=== PATIENT | female | born 1960 | race Caucasian/White ===

== ENCOUNTER 2016-11-12 11:42 | Emergency (ER) | payer OTHER ==
[2016-11-12 11:57] VITALS: BP 166/89
[2016-11-12] MEDS ORDERED: Aspirin Low Dose CHEW TAB* 81 MG PO ONE (12:25)
--- NOTE | 2016-11-12 14:33 | UC ---
Michael Anne Michael, scribed for Farrah Mercado DO on 11/12/16 at 1225 . Cardiac HPI - HPI Summary HPI Summary: 56 y/o female comes to [facility] presenting with intermittent episodes of chest pain that started 2 weeks ago. The pt describes the chest pain as pressure and tightness. Today the chest pain was rated an 8 out of 10 on a pain severity scale at it's worse, but currently at [facility] the chest pain is rated as a 3 out of 10. The chest pain occurs a "couple time" per day and last up to one hour. The pt also c/o nausea, loss of appetite, and sore throat. She denies SOB, cough, neck pain, jaw pain, bilateral UE pain, dizziness, and diaphoresis. The pt has no hx of panics attacks, but she does notice an increased in anxiety for the past 2 weeks. She believes it could be from starting her medications again. The pt originally stopped all of them 6 months ago for financial reasons including insulin. 2 weeks ago she retarted all of them except insulin. The PMHx is significant for HTN and DM. The FHx is significant for DM and CVA. - History of Current Complaint Chief Complaint: UCCardiac Stated Complaint: PANIC ATTACKS Time Seen by Provider: 11/12/16 11:52 Hx Obtained From: Patient, Medical Records Onset/Duration: Sudden Onset, Lasting Weeks Timing: Intermittent Episodes Lasting: Initial Severity: Moderate Current Severity: None Chest Pain Location: Mid Sternal, Upper Sternal, Left Anterior Character: Tightness, Pressure/Squeezing Aggravating: Nothing Alleviating: Nothing Associated Signs & Symptoms: Positive: Negative - SOB, cough, neck pain, jaw pain, bilateral UE pain, dizziness, and diaphoresis, Chest Pain - including sore throat., Anxiety, Recent Stress, Nausea/Vomiting - only nausea and loss of appetite.. Negative: Headaches, Numbness, Tingling, Weakness, Dizziness, SOB, Swelling, Syncope, Fever, Diaphoresis, Cough, Abdominal Pain, Calf Pain/Swelling - Risk Factors Cardiac Risk Factors: Hypertension, Diabetes, Elevated Lipids, Family History AMI/ACS Risk Factors: Sedentary Lifestyle, Diabetes, Obesity, Hypertension, Dyslipidemia - Allergy/Home Medications Allergies/Adverse Reactions: Allergies Allergy/AdvReac Type Severity Reaction Status Date / Time No Known Allergies Allergy Verified 11/12/16 13:37 Home Medications: Home Medications FLUoxetine CAP* [PROzac CAP*] 20 mg PO DAILY 11/12/16 [History Confirmed ] Insulin ISOPH/REG 70/30 (*) [HumuLIN 70/30 (*)] 20 units BID AC 11/12/16 [ History Confirmed 11/12/16] Lisinopril & Hydrochlorothiazi [Zestoretic 20-25 mg-] 1 tab PO DAILY 11/12/16 [ History Confirmed 11/12/16] Metformin HCl [Glucophage] 1,000 mg PO BID 11/12/16 [History Confirmed 11/12/16] Oxybutynin TAB* [Ditropan TAB*] 5 mg PO DAILY 11/12/16 [History Confirmed ] Simvastatin [Zocor 40 MG (NF)] 40 mg PO QPM 11/12/16 [History Confirmed 11/12/16 ] PMH/Surg Hx/FS Hx/Imm Hx Endocrine History Of: Reports: Diabetes Cardiovascular History Of: Reports: Cardiac Disorders - murmur, Hypertension - Surgical History Surgical History: Yes Surgery Procedure, Year, and Place: hernia repair, cholecystectomy, hysterectomy - Family History Known Family History: Positive: Diabetes, Other - CVA Negative: Cardiac Disease, Hypertension - Social History Occupation: Employed Full-time Lives: With Family Alcohol Use: None Substance Use Type: None Smoking Status (MU): Never Smoked Tobacco - Immunization History Most Recent Influenza Vaccination: fall 2015 Review of Systems Constitutional: Negative Skin: Negative Eyes: Negative ENT: Sore Throat Respiratory: Negative Cardiovascular: Chest Pain Gastrointestinal: Other - nausea. loss of appetite. Genitourinary: Negative Motor: Negative Neurovascular: Negative Musculoskeletal: Negative Neurological: Negative Psychological: Negative All Other Systems Reviewed And Are Negative: Yes Physical Exam Triage Information Reviewed: Yes Appearance: Well-Appearing, No Pain Distress, Obese Vital Signs: Initial Vital Signs Temp 100.1 F 11/12/16 11:51 Pulse 79 11/12/16 11:51 Resp 16 11/12/16 11:51 BP 166/89 11/12/16 11:51 Pulse Ox 99 11/12/16 11:51 Vital Signs Reviewed: Yes Eyes: Positive: Conjunctiva Clear. Negative: Discharge ENT: Positive: Hearing grossly normal. Negative: Muffled/hoarse voice Neck: Positive: Supple, Nontender Respiratory: Positive: Lungs clear, Normal breath sounds, No respiratory distress, No accessory muscle use Cardiovascular: Positive: RRR, No Murmur Abdomen Description: Positive: Nontender, Soft. Negative: Distended, Guarding Bowel Sounds: Positive: Present Musculoskeletal Exam: Normal Neurological: Positive: Alert, Muscle Tone Normal Psychological Exam: Normal Psychological: Positive: Age Appropriate Behavior Skin Exam: Normal - warm. dry. nml color. Diagnostics - EKG Cardiac Rhythm: Sinus: Normal - 84 bpm Ectopy: None ST Segment: Normal - Assessment/Plan Course Of Treatment: Pt will be transferred to [facility] ED. Consulted Uday Arreola at 1220. - Differential Diagnoses - Chest Pain Differential Diagnosis/HQI/PQRI: Acute DC, ACS, Angina, Chest Wall, GI Disease, Pulmonary Embolism, Other: - anxiety - Clinical Impression Provider Diagnoses: cp r/o acs Discharge - Discharge Plan Condition: Stable Disposition: TRANS HIGHER LVL OF CARE FAC Referrals: Lex Ayala MD [Primary Care Provider] - The documentation as recorded by the Michael ramirez Michael accurately reflects the service I personally performed and the decisions made by , Farrah Mercado DO.
== END 2016-11-12 12:50 | disposition short-term general hospital (02) ==
LOC: UCEAST 11:42
DX: R07.89 Other chest pain (principal); F41.0 Panic disorder [episodic paroxysmal anxiety]; E11.9 Type 2 diabetes mellitus without complications; Z79.4 Long term (current) use of insulin; Z79.84 Long term (current) use of oral hypoglycemic drugs; I10 Essential (primary) hypertension; Z90.49 Acquired absence of other specified parts of digestive tract
CPT/HCPCS: 93005; 99203; A9270-GY; G0463

== ENCOUNTER 2016-11-12 13:03 | Observation (INO) | payer OTHER ==
[2016-11-12] MEDS ORDERED: Aspirin Low Dose CHEW TAB* 81 MG PO ONE (13:15)
--- NOTE | 2016-11-12 13:34 | RAD ---
INDICATION: Chest pain. COMPARISON: Comparison is made with a prior chest x-ray study from June 05, 2004. TECHNIQUE: A portable view of the chest was obtained. FINDINGS: Cardiac and mediastinal contours appear to be within normal limits. The lungs are clear. No pleural effusion is seen. IMPRESSION: NO EVIDENCE FOR ACUTE DISEASE.
[2016-11-12 13:38] LABS: Hematocrit 35 % (35-47); Mean Corpuscular HGB Conc 34 g/dl (31-36); Mean Corpuscular Hemoglobin 28 pg (27-31); Mean Corpuscular Volume 82 fL (80-97); Mean Platelet Volume 8 um3 (7.4-10.4); Red Cell Distribution Width 14 % (10.5-15); White Blood Count 7.2 10^3/ul (3.5-10.8)
[2016-11-12 13:50] LABS: Albumin 4.1 g/dL (3.2-5.2); BUN/Creatinine Ratio 22.1 (8-20); Calcium 9.9 mg/dL (8.6-10.3); EGFR African American 58.4 (>60); EGFR Non-African American 45.4 (>60); Globulin 3.1 g/dL (2-4); Magnesium 1.5 mg/dL (1.9-2.7); Potassium 3.8 mmol/L (3.5-5.0); Total Bilirubin 0.4 mg/dL (0.2-1.0); Total Protein 7.2 g/dL (6.4-8.9)
[2016-11-12 13:52] LABS: Troponin I 0.01 ng/mL (<0.04)
[2016-11-12] MEDS ORDERED: Al Hydrox/Mg Hydrox/Simet LIQ* 30 ML UDC PO PRN (13:58)
[2016-11-12] MEDS ORDERED: Acetaminophen TAB* 325 MG PO PRN (13:58)
[2016-11-12] MEDS ORDERED: Dextrose 50% Syringe 50 ML* 25 GM/50 ML SYRINGE IV PUSH PRN (14:00)
[2016-11-12 14:56] LABS: T4 7.88 g/dL (6.09-12.23)
[2016-11-12 14:57] LABS: TSH (Thyroid Stimulating Horm) 2.01 mcIU/mL (0.34-5.60)
[2016-11-12] MEDS: Heparin VIAL(*) 5000 UNITS/ML VIAL (FIVE THOUSAND) SUBCUT SCH ×2 (15:56→22:06)
--- NOTE | 2016-11-12 16:21 | ED ---
Doroteo Anne Billy, scribed for Karlo Hassan MD on 11/12/16 at 1320 . HPI Chest Pain - HPI Summary HPI Summary: Patient is a 56 year-old female coming to [facility] for evaluation of midsternal chest pain starting at 1050 this morning, lasting approximately 1 hour. She describes constant, non-radiating chest "soreness and tightness," pain severity 8/10. 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 Nothing made her symptoms better or worse at the time, although the symptoms spontaneously resolved. She denied any nausea, vomiting, shortness of breath, dizziness, or syncope. She is asymptomatic at this time. - History of Current Complaint Chief Complaint: EDChestPainROMI Time Seen by Provider: 11/12/16 13:11 Hx Obtained From: Patient Onset/Duration: Started Hours Ago, Resolved Time of Onset: 10:50 Timing: Constant Initial Severity: Moderate Current Severity: None Pain Intensity: 8 Pain Scale Used: 0-10 Numeric Chest Pain Location: Mid Sternal Chest Pain Radiates: No Character: Tightness, Other: - sore Aggravating Factor(s): Nothing Alleviating Factor(s): Nothing Associated Signs and Symptoms: Positive: Chest Pain. Negative: Dizziness, Shortness of Breath, Syncope, Nausea, Vomiting - Allergy/Home Medications Allergies/Adverse Reactions: Allergies Allergy/AdvReac Type Severity Reaction Status Date / Time No Known Allergies Allergy Verified 11/12/16 13:37 PMH/Surg Hx/FS Hx/Imm Hx Endocrine/Hematology History: Reports: Hx Diabetes Cardiovascular History: Reports: Hx Hypercholesterolemia, Hx Hypertension - Surgical History Surgery Procedure, Year, and Place: hernia repair, cholecystectomy, hysterectomy Infectious Disease History: No Infectious Disease History: Denies: Traveled Outside the [place] in Last 30 Days - Family History Known Family History: Positive: Diabetes, Other - CVA - Social History Alcohol Use: None Substance Use Type: Reports: None Smoking Status (MU): Never Smoked Tobacco Review of Systems Positive: Chest Pain Negative: Shortness Of Breath Negative: Vomiting, Nausea Negative: Syncope All Other Systems Reviewed And Are Negative: Yes Physical Exam - Summary Physical Exam Summary: VITAL SIGNS: Reviewed. GENERAL: Patient is a well developed and nourished female who is lying comfortable in the stretcher. Patient is not in any acute respiratory distress. HEAD AND FACE: No signs of trauma. No ecchymosis, hematomas or skull depressions. No sinus tenderness. EYES: PERRLA, EOMI x 2, No injected conjunctiva, no nystagmus. EARS: Hearing grossly intact. Ear canals and tympanic membranes are within normal limits. MOUTH: Oropharynx within normal limits. NECK: Supple, trachea is midline, no adenopathy, no JVD, no carotid bruit, no c- spine tenderness, neck with full ROM. CHEST: Symmetric, no tenderness at palpation LUNGS: Clear to auscultation bilaterally. No wheezing or crackles. CVS: Regular rate and rhythm, S1 and S2 present, no murmurs or gallops appreciated. ABDOMEN: Soft, non-tender. No signs of distention. No rebound no guarding, and no masses palpated. Bowel sounds are normal. EXTREMITIES: FROM in all major joints, no edema, no cyanosis or clubbing. NEURO: Alert and oriented x 3. No acute neurological deficits. Speech is normal and follows commands. SKIN: Dry and warm Triage Information Reviewed: Yes Vital Signs On Initial Exam: Initial Vitals Temp Pulse Resp BP Pulse Ox 99.5 F 81 16 164/77 98 11/12/16 13:07 11/12/16 13:07 11/12/16 13:07 11/12/16 13:07 11/12/16 13:07 Vital Signs Reviewed: Yes Diagnostics - Vital Signs Vital Signs Temp Pulse Resp BP Pulse Ox 11/12/16 13:07 99.5 F 81 16 164/77 98 - Laboratory Result Diagrams: 11/12/16 13:20 11/12/16 13:20 Lab Statement: Any lab studies that have been ordered have been reviewed, and results considered in the medical decision making process. - Radiology CXR Xray Interpretation: No Acute Changes Radiology Interpretation Completed By: Radiologist - EKG 1415 EKG Interpretation: NSR 76 bpm, no ST elevation Chest Pain Course/Dx - Course Assessment/Plan: Patient is a 56 year-old female coming to [facility] for evaluation of midsternal chest pain starting at 1050 this morning, lasting approximately 1 hour. She describes constant, non-radiating chest "soreness and tightness," pain severity 8/10. 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 Nothing made her symptoms better or worse at the time, although the symptoms spontaneously resolved. She denied any nausea, vomiting, shortness of breath, dizziness, or syncope. She is asymptomatic at this time. Bloodwork WNL except for an increased BUN and creatinine consistent with slight renal insufficiency. Troponin is 0.01. EKG shows NSR with no ST elevation. CXR shows no acute findings. The patient was given ASA, IV fluids. The patient is more comfortable. However, due to multiple co-morbidities, the patient will be admitted to hospitalist services to rule out acute coronary syndrome. Patient is A&Ox3, heomdynamically stable. I discussed the case with Dr. Fraire who accepted the patient for admission. - Chest Pain Differential Diagnosis/HQI/PQRI: Acute NV, ACS, Angina, Aortic Aneurysm, CHF, Chest Wall, GI Disease, Lower Respiratory Infection - Diagnoses Provider Diagnoses: CP - Provider Notifications Discussed Care Of Patient With: Dr. Fraire (hospitalist) @ 0715: accepted admission. Discharge - Discharge Plan Condition: Stable Disposition: ADMITTED TO [facility] The documentation as recorded by the Doroteo ramirez Billy accurately reflects the service I personally performed and the decisions made by me, Karlo Hassan MD.
[2016-11-12] MEDS: Insulin LISPRO* 1 UNITS UNIT SUBCUT SCH (16:58)
[2016-11-12] MEDS ORDERED: Atorvastatin* 20 MG TAB PO SCH (18:00)
[2016-11-12] MEDS ORDERED: Temazepam CAP* 15 MG PO PRN (21:00)
--- NOTE | 2016-11-13 00:58 | HP ---
HISTORY AND PHYSICAL: DATE OF ADMISSION: 11/12/16 CHIEF COMPLAINT: Chest pain. PRIMARY CARE PROVIDER: Dr. Ayala. HISTORY OF PRESENT ILLNESS: Ms. Restrepo is a 56-year-old female with a history of diabetes, hypertension, dyslipidemia, who presents complaining of nonspecific chest pressure complaints. The patient stated for approximately 2 weeks, she would be having almost daily episodes of left upper chest pressure. She stated that it was not pain per se, but it felt like a "gas bubble." Today, it lasted approximately 1 hour and occurred when she was singing at a [employer] choir. She does not associate the pain with exercise. Usually, she would be standing or sitting when the pain would happen. It would resolve spontaneously without an associated dyspnea. She did complain of nausea with one episode of pain 2 days ago. She denies problems with exercise tolerance. Otherwise, she had been in her usual state of health. She is going to be placed on overnight observation with a diagnosis of chest pain PAST MEDICAL HISTORY: 1. Laparoscopic cholecystectomy. 2. Hernia repair. 3. Hysterectomy. 4. Diabetes. 5. Hypertension. 6. Dyslipidemia. MEDICATIONS: Include: 1. Simvastatin 40 mg daily. 2. Ditropan 5 mg daily. 3. Glucophage 1000 mg b.i.d. 4. Lisinopril with hydrochlorothiazide 20/25 one tablet daily. 5. Humulin 70/30 20 units b.i.d. The patient had not been using it for 6 months with problems with co-pays and being unable to afford it. 6. Prozac 20 mg daily. ALLERGIES: No known drug allergies. FAMILY HISTORY: Positive for father with a history of stroke, but at the age of 72. Mother with history of diabetes. SOCIAL HISTORY: Denies tobacco, alcohol, or drug use. 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 Her brother, Lacho, will be her surrogate if needed. REVIEW OF SYSTEMS: Please see history of present illness. The patient stated that she has had a stressful situation at home due to low income. She had problems affording her rent and her medications. All the remaining 14 systems were reviewed with the patient and were otherwise negative. PHYSICAL EXAMINATION GENERAL: The patient is a very pleasant 56-year-old female, who is in no acute distress. Awake, alert, and oriented x3. VITAL SIGNS: Blood pressure of 155/71, heart rate of 84 and regular, respiratory rate 21, oxygen saturation 98% on room air, and temperature 99.5. HEENT: Head: Atraumatic, normocephalic. Eyes: Pupils equal, reactive to light and accommodation. Oropharynx clear. Mucosa moist. NECK: Supple. No JVD, no bruit bilaterally. RESPIRATORY: Clear to auscultation bilaterally. CARDIOVASCULAR: Regular rate and rhythm. No murmur. ABDOMEN: Soft, nontender. Bowel sounds present in all 4 quadrants. EXTREMITIES: There is no edema. Pulses are +2 bilaterally. No clubbing or cyanosis. NEUROLOGIC: Speech clear. Cranial nerves II through XII grossly intact. Motor strength is 5/5 bilaterally. DIAGNOSTIC STUDIES/LAB DATA: Showed a white blood cell count of 7.2, hemoglobin of 12.0, hematocrit of 35, and platelets of 198. Sodium 133, potassium 3.8, chloride 99, carbon dioxide 25, BUN 27, creatinine 1.22. Glucose level of 183. Portable chest x-ray, impression: "No evidence for acute disease." EKG was reviewed by myself. The patient has normal sinus rhythm. No significant ST changes with a heart rate of 76 beats per minute. ASSESSMENT AND PLAN: 1. A 56-year-old lady with a history of diabetes, hypertension, who has had problems with affording her medications and most likely has had uncontrolled diabetes that presents with nonspecific chest pain complaints as described above. The patient is going to be placed on telemetry monitored bed and observation. Second troponin is going to be obtained. If that is negative, the patient is going to undergo a treadmill Myoview stress test in the morning. 2. In regards to the patient's dyslipidemia, her statin is going to be continued. We will also obtain fasting lipid profile in the morning. 3. In regards to the patient's diabetes, the patient is going to be placed on insulin sliding scale. Her Glucophage is going to be held while in the hospital. We will ask also social worker delinquency prevention to see the patient in consultation in regards to problems with covering the cost of the patient's co-pays. She apparently had not been able to afford her insulin due to high co-pay. 4. For DVT prophylaxis, the patient is going to be placed on heparin subcutaneously. 5. Code status is full. TIME SPENT: Approximately 62 minutes was spent on admission of this patient, more than half that time was spent [id number] with the patient during the interview and physical exam. CC: Dr. Ayala* [id number]/[facility] #: [id number] CASA
[2016-11-13] MEDS: Heparin VIAL(*) 5000 UNITS/ML VIAL (FIVE THOUSAND) SUBCUT SCH ×2 (05:37→14:39)
[2016-11-13 06:17] LABS: HDL Cholesterol 27.9 mg/dL
[2016-11-13 08:59] LABS: Troponin I 0.01 ng/mL (<0.04)
[2016-11-13] MEDS ORDERED: FLUoxetine CAP* 20 MG PO SCH (09:00)
[2016-11-13] MEDS ORDERED: Oxybutynin TAB* 5 MG PO SCH (09:00)
[2016-11-13] MEDS ORDERED: Aspirin Low Dose CHEW TAB* 81 MG PO SCH (09:00)
[2016-11-13] MEDS ORDERED: Lisinopril TAB* 10 MG PO SCH (09:00)
[2016-11-13] MEDS ORDERED: Hydrochlorothiazide TAB* 25 MG PO SCH (09:00)
[2016-11-13] MEDS: Insulin LISPRO* 1 UNITS UNIT SUBCUT SCH ×2 (09:14→14:44)
[2016-11-13 12:35] VITALS: BP 112/66
--- NOTE | 2016-11-13 13:11 | RAD ---
INDICATION: Chest pain COMPARISON: None TECHNIQUE: A single day SPECT protocol was utilized. Rest images were acquired following the intravenous injection of 10.2 millicuries of technetium 99m tetrofosmin. Pharmacologic stress images were acquired following the intravenous administration of 26.0 millicuries of technetium 99m tetrofosmin. FINDINGS: There are no defects of the stress-induced or fixed nature. The cardiac chamber size is normal. There are no wall motion abnormalities. The ejection fraction is calculated at 65% during stress. IMPRESSION: NO DEFECTS OR STRESS-INDUCED OR FIXED NATURE. ASSESSMENT: LOW-RISK Based on imaging criteria from ACC/AHA 2002 Guideline Update for the Management of Patients With Chronic Stable Angina Table 23. Noninvasive Risk Stratification.
[2016-11-13] MEDS ORDERED: Regadenoson* 0.4 MG/5 ML SYRINGE ONE (14:01)
--- NOTE | 2016-11-13 14:20 | DCNOTE ---
Subjective Date of Service: 11/13/16 Interval History: No more chest pain since admission. No new c/o. Patient states she hasn't had any insulin at home for weeks due to the high copay. She doesn't check her glucometer at home. Objective Active Medications: Acetaminophen (Tylenol Tab*) 650 mg PO Q4H PRN PRN Reason: FEVER/PAIN Al Hydrox/Mg Hydrox/Simethicone (Maalox Plus*) 30 ml PO Q6H PRN PRN Reason: INDIGESTION Aspirin (Aspirin Low Dose Tab*) 81 mg PO DAILY [facility] Atorvastatin Calcium (Lipitor*) 20 mg PO QPM [facility] Last Admin: 11/12/16 16:59 Dose: 20 mg Dextrose (D50w Syringe 50 Ml*) 12.5 gm IV PUSH .FOR FS < 60 - SS PRN PRN Reason: FS < 60 Fluoxetine HCl (Prozac Cap*) 20 mg PO DAILY [facility] Glipizide (Glucotrol Tab*) 5 mg PO 0800,1700 [facility] Heparin Sodium (Porcine) (Heparin Vial(*)) 5,000 units SUBCUT Q8HR [facility] Last Admin: 11/13/16 05:37 Dose: 5,000 units Hydrochlorothiazide (Hydrodiuril Tab*) 25 mg PO DAILY [facility] Insulin Human Lispro (Humalog*) 0 units SUBCUT AC [facility] PRN Reason: Protocol Last Admin: 11/13/16 09:14 Dose: 2 units Lisinopril (Prinivil Tab*) 20 mg PO DAILY [facility] Oxybutynin Chloride (Ditropan Tab*) 5 mg PO DAILY [facility] Temazepam (Restoril Cap*) 15 mg PO BEDTIME PRN PRN Reason: INSOMNIA Vital Signs 11/12/16 11/12/16 11/12/16 14:33 14:57 15:00 Temperature Pulse Rate 78 86 83 Respiratory 19 18 21 Rate Blood Pressure 140/69 155/71 (mmHg) O2 Sat by Pulse 98 97 98 Oximetry 11/12/16 11/12/16 11/12/16 15:07 15:56 19:20 Temperature 98.1 F 98.8 F Pulse Rate 82 89 76 Respiratory 19 16 16 Rate Blood Pressure 159/64 130/59 (mmHg) O2 Sat by Pulse 97 99 94 Oximetry 11/12/16 11/13/16 11/13/16 23:43 04:08 07:34 Temperature 98.3 F 97.8 F 97.9 F Pulse Rate 75 67 64 Respiratory 16 16 16 Rate Blood Pressure 126/51 121/52 118/58 (mmHg) O2 Sat by Pulse 97 97 99 Oximetry 11/13/16 08:43 Temperature Pulse Rate 69 Respiratory 18 Rate Blood Pressure 112/66 (mmHg) O2 Sat by Pulse Oximetry Oxygen Devices in Use Now: None Appearance: Alert, partly up in bed. In good spirits. Looks comfortable. Eyes: No Scleral Icterus Ears/Nose/Mouth/Throat: Clear Oropharnyx, Mucous Membranes Moist Neck: NL Appearance and Movements; NL JVP, No Thyroid Enlargement, Masses Respiratory: Symmetrical Chest Expansion and Respiratory Effort, Clear to Auscultation, Clear to Percussion Cardiovascular: NL Sounds; No Murmurs; No JVD, RRR, No Edema, - Skin: No Rash or Ulcers, No Nodules or Sclerosis, - Neurological: Alert and Oriented x 3, NL Sensation Result Diagrams: 11/12/16 13:20 11/12/16 13:20 Assess/Plan/Problems-Billing Assessment: - Patient Problems (1) Chest pain Current Visit: Yes Status: Acute Code(s): R07.9 - CHEST PAIN, UNSPECIFIED SNOMED Code(s): 83312216 Comment: Atypical chest pain. Neg troponins, neg stress test. Pt advised to discuss this with Dr. Aayla. (2) Diabetes Current Visit: Yes Status: Acute Code(s): E11.9 - TYPE 2 DIABETES MELLITUS WITHOUT COMPLICATIONS SNOMED Code(s): 82151151 Comment: SW is trying to help patient obtain insulin. Stop metformin due to lactic acidosis. Start glipizide. Pt advised to see Dr. Ayala this week, also to check her FS glucose at least tsice a day.
[2016-11-13] MEDS ORDERED: glipiZIDE TAB* 5 MG PO SCH (17:00)
--- NOTE | 2016-11-14 03:50 | DS ---
DISCHARGE SUMMARY: DATE OF ADMISSION: DATE OF DISCHARGE: 11/13/16 HISTORY OF PRESENT ILLNESS: This 56-year-old woman presented with chest pain that occurred while she was singing in choir at a [employer] on Sunday. It lasted about an hour. There were no associated symptoms. There was no radiation. She had the same off and on about once a day for the past week or so. She was rather sedentary and it was not related to any exertion or any other activities. She did not seek medical attention until the day of admission. The patient was admitted to a telemetry floor. Her troponins levels were all normal. She had a nuclear medicine stress test, which showed no evidence of infarct or ischemia. She had no further symptoms in the hospital. I am not sure what the etiology of her chest pain is. She could have esophageal spasm, esophagitis, chest wall problem. She had no tenderness on physical examination. There was no heart murmur or pericardial rub. She had no symptoms in the hospital. I think this is suitable for outpatient management. The patient states she has not taken insulin for several weeks as she could not accord the high co-pay. In the hospital, it was noted her lactic acid was 3.1. The creatinine is 1.22. I do not have any prior values for this. I think the combination of impaired renal function and lactic acidosis would precludes continuing her metformin. I did start her on glipizide 5 mg b.i.d. She received insulin in the hospital. She will start her glipizide the afternoon of discharge. She stated she had taken it in the past and does not know why it was stopped. Most likely it was not effective as a single agent. Her blood sugar in the lab here was 183. The last fingerstick was 184 in the hospital. The patient stated she simply does not use her glucometer at home. I told her to use it at least twice a day. She is to see Dr. Ayala before the end of the week as well. FINAL DIAGNOSES: 1. Atypical chest pain. 2. Diabetes. DISCHARGE MEDICATIONS: 1. Glipizide 5 mg 8 a.m. and 5 p.m. 2. Fluoxetine 20 mg daily. 3. Simvastatin 40 mg daily. 4. Lisinopril/hydrochlorothiazide 20/25 one daily. 5. Oxybutynin 5 mg daily. 6. Insulin as prescribed, although the patient cannot afford it. mold worker is working with the patient to try to arrange for her to have insurance that would make it possible for her to use insulin at home. CC: Dr. Ayala* [id number]/[facility] #: [id number] MTDD
== END 2016-11-13 16:13 | disposition home or self-care (01) ==
LOC: ED 13:03 → MEDTELE 13:53
PROVIDERS: ADMIT Internal Medicine; ATTEND Internal Medicine
DX: R07.89 Other chest pain (principal); E11.9 Type 2 diabetes mellitus without complications; Z79.4 Long term (current) use of insulin; E78.5 Hyperlipidemia, unspecified; Z79.899 Other long term (current) drug therapy; Z91.14 Patient's other noncompliance with medication regimen
CPT/HCPCS: 36415; 71010; 78452; 80053; 80061; 82550; 82553; 83036; 83605; 83735; 83880; 84436; 84443; 84484; 85025; 93005; 93017; 96372; 99283; A9270-GY; A9502; G0378; J1644; J2785

== ENCOUNTER 2017-08-21 11:44 | Inpatient (IN) | payer BC ==
--- NOTE | 2017-08-15 10:55 | HP ---
HISTORY AND PHYSICAL: DATE OF SURGERY/ADMISSION: 08/21/17 SURGEON: Sendy France MD. * (DICTATED BY ESHA HUNT) PROCEDURE: Right total knee arthroplasty. CHIEF COMPLAINT: Right knee pain. HISTORY OF PRESENT ILLNESS: Ms. Restrepo is a 57-year-old female with end-stage osteoarthritis of the right knee. She has failed conservative management and elected to proceed with a right total knee arthroplasty, which is scheduled for 08/21/[address] France. PAST MEDICAL HISTORY: Hypertension and diabetes. PAST SURGICAL HISTORY: Cholecystectomy, hernia repair and hysterectomy. CURRENT MEDICATIONS: 1. Glipizide 5 mg daily. 2. Oxybutynin 5 mg. 3. Lisinopril/hydrochlorothiazide 20/25 mg daily. 4. Simvastatin 40 mg. 5. Humalog 75-25, 100 units. 6. Meloxicam 7.5 mg twice daily. 7. Daily multivitamin. ALLERGIES: LATEX. FAMILY HISTORY: Diabetes, heart disease, and stroke. SOCIAL HISTORY: She is a 57-year-old female. She lives alone. She does not smoke. She is a home health aide. She does not use drugs or alcohol. REVIEW OF SYSTEMS: A complete 14-point review of systems was reviewed with the patient, was positive for diabetes. She denies history of DVT, PE, hepatitis C , HIV or anesthesia problems. PHYSICAL EXAMINATION GENERAL: She is well developed, well nourished, in no acute distress. VITAL SIGNS: She stands 5 feet 5 inches tall, weighs 190 pounds. Blood pressure is 142/80, heart rate 80. HEENT: Normocephalic, atraumatic. NECK: Supple. No palpable lymph nodes. PULMONARY: Lungs are clear to auscultation bilaterally. CARDIAC: Regular rate and rhythm. Strong S1, S2. ABDOMEN: Soft, nontender, and nondistended. NEUROLOGIC: She is alert and oriented x3. Cranial nerves II through XII are intact. MUSCULOSKELETAL: Right lower extremity, the skin is intact. There are no open wounds or abrasions. There is a mild effusion of the right knee. There is 15 degrees valgus deformity with 10 to 120 degrees of flexion. 2+ dorsalis pedis pulses. She has intact sensation. Lower extremity muscle groups strengths are intact at 5/5. ASSESSMENT AND PLAN: Ms. Restrepo is a 57-year-old female with end-stage osteoarthritis of the right knee. She has failed conservative management and elected to proceed with a right total knee arthroplasty, which is scheduled for 08/21/[address] France discussed the risks and benefits of the surgery on today's visit and all of her questions were answered. Coumadin, Percocet and Colace were sent to her pharmacy for postoperative pain control and DVT prophylaxis. She will follow up with Dr. France back 2 weeks after the surgery. ESHA HUNT [id number]/[facility] #: [id number] MTDConnie
[~2017-08-21 11:44] MED LIST: Buffered Lidocaine 0.9% SYRIN* 5 ML/SYR SYRINGE INTRADERM ONE; Famotidine IV* 10 MG/ML 2 ML (20 mg) IV ONE; Metoclopramide TAB* 10 MG PO ONE
[2017-08-21] MEDS ORDERED: Buffered Lidocaine 0.9% SYRIN* 5 ML/SYR SYRINGE ONE (11:52)
[2017-08-21] MEDS ORDERED: Famotidine IV* 10 MG/ML 2 ML (20 mg) ONE (11:52)
[2017-08-21] MEDS ORDERED: ceFAZolin 2 GM PREMIX (*) 2 GM/50 ML BAG IVPB ONE (11:52)
[2017-08-21] MEDS ORDERED: Metoclopramide TAB* 10 MG ONE (11:52)
[2017-08-21] MEDS ORDERED: Dexamethasone IV* 4 MG/ML 1 ML (4 MG) ONE (12:27)
[2017-08-21] MEDS ORDERED: Propofol* 10 MG/ML 20 ML BTL IV PUSH ONE (12:27)
[2017-08-21] MEDS ORDERED: fentaNYL* 50 MCG/ML 2 ML VIAL (100 MCG VIAL) ONE ×3 (12:27→16:22)
[2017-08-21] MEDS ORDERED: Lidocaine 2% PF * 5 ML VIAL ONE (12:27)
[2017-08-21] MEDS ORDERED: Ketorolac INJ* 30 MG/ML 1 ML VIAL ONE (12:27)
[2017-08-21] MEDS ORDERED: Ondansetron INJ* 2 MG/ML VIAL ONE (12:27)
[2017-08-21] MEDS ORDERED: KETAMINE HCL* 50 MG/ML 10 ML VIAL ONE (12:27)
[2017-08-21] MEDS ORDERED: Midazolam* 1 MG/ML 10 ML VIAL (10 MG) ONE (12:28)
[2017-08-21] MEDS ORDERED: Bupivacaine 0.5% SDV PF* 30 ML VIAL ONE (13:37)
[2017-08-21] MEDS ORDERED: EPHEDrine (Pressors)* 50 MG/ML VIAL ONE (14:24)
[2017-08-21] MEDS ORDERED: fentaNYL* 50 MCG/ML 5 ML VIAL (250 MCG VIAL) ONE (14:36)
[2017-08-21] MEDS ORDERED: Ondansetron INJ* 2 MG/ML VIAL IV PRN ×2 (15:20→15:21)
[2017-08-21] MEDS ORDERED: fentaNYL* 50 MCG/ML 2 ML VIAL (100 MCG VIAL) IV PRN (15:20)
[2017-08-21] MEDS ORDERED: DiMENhydriNATE IV* 50 MG/ML VIAL IV PUSH PRN (15:20)
[2017-08-21] MEDS ORDERED: Acetaminophen TAB* 325 MG PO PRN (15:21)
[2017-08-21] MEDS ORDERED: diPHENhydraMINE IV* 50 MG/ML 1 ml VIAL (BENADRYL) IV PRN (15:21)
[2017-08-21] MEDS ORDERED: Bisacodyl SUPP* 10 MG SUPP PR PRN (15:21)
[2017-08-21] MEDS ORDERED: Ondansetron TAB* 4 MG PO PRN (15:21)
[2017-08-21] MEDS ORDERED: Morphine INJ* 2 MG/ML 1 ML SYRINGE (TWO MG - NEW SYRINGE VERSION) IV PRN (15:21)
[2017-08-21] MEDS ORDERED: Polyethylene Glycol 3350* 17 GM PACKET PO PRN (15:21)
[2017-08-21] MEDS ORDERED: HYDROmorphone INJ* 2 MG/ML CARPUJECT SYRINGE IV SLOW PU PRN (15:31)
[2017-08-21] MEDS ORDERED: Cyclobenzaprine TAB* 10 MG PO PRN (15:32)
[2017-08-21] MEDS ORDERED: HYDROmorphone INJ* 1 MG/ML CARPUJECT SYRINGE ONE ×2 (16:04→17:36)
[2017-08-21] MEDS ORDERED: Insulin ISOPH/REG 70/30 (*) 1 UNITS UNIT SUBCUT SCH (16:30)
[2017-08-21] MEDS ORDERED: Labetalol IV* 5 MG/ML 20 ML VIAL ONE (17:36)
[2017-08-21] MEDS: HYDROmorphone INJ* 1 MG/ML CARPUJECT SYRINGE IV PRN ×2 (17:39→18:20)
--- NOTE | 2017-08-21 18:55 | RAD ---
INDICATION: Status post total right knee replacement surgery. TECHNIQUE: 2 views of the right knee were obtained. FINDINGS: The patient is status post total right knee replacement surgery. The bones and prostheses are in normal alignment. There is a surgical drain anterior to the distal femur. IMPRESSION: STATUS POST TOTAL RIGHT KNEE REPLACEMENT SURGERY.
[2017-08-21] MEDS ORDERED: Warfarin TAB(*) 6 MG PO ONE (21:00)
[2017-08-21] MEDS: Docusate CAP* 100 MG PO SCH (21:42)
[2017-08-21] MEDS ORDERED: Dextrose 50% Syringe 50 ML* 25 GM/50 ML SYRINGE IV PUSH PRN (21:42)
[2017-08-21] MEDS: Oxybutynin TAB* 5 MG PO SCH (21:42)
[2017-08-21] MEDS: Atorvastatin* 20 MG TAB PO SCH (21:43)
[2017-08-21] MEDS: oxyCODONE/Acetamin 5/325 MG* TAB PO PRN (21:43)
[2017-08-21] MEDS ORDERED: ceFAZolin 1 GM in Dextrose (*) 1 GM/50 ML Duplex BAG IVPB SCH (22:30)
--- NOTE | 2017-08-21 23:54 | CONS ---
CC: Dr. Sendy France; Dr. Lex Ayala * CONSULTATION REPORT: DATE OF CONSULT: 08/21/17 PRIMARY CARE PROVIDER: Dr. Lex Ayala. PROVIDER REQUESTING CONSULT: Dr. Sendy France. ATTENDING PHYSICIAN: Dr. Eddie Barton (dictated by Rita Brock NP). REASON FOR CONSULT: Co-medical management in a patient with a history of hypertension, diabetes, depression, and hyperlipidemia. HISTORY OF PRESENT ILLNESS: Ms. Restrepo is a 57-year-old female with a past medical history significant for depression, diabetes mellitus, hyperlipidemia, and osteoarthritis, who presented to the hospital today for an elective right total knee arthroplasty with Dr. France. The patient states that leading up to her surgery, she has been in her usual state of health. She denies any fever, chills, shortness of breath, chest pain, nausea, vomiting, diarrhea, or urinary symptoms. The patient is currently pain free while in the recovery room postprocedure. Hospitalists were asked to evaluate the patient to assist with co -medical management during her hospitalization. PAST MEDICAL HISTORY: 1. Hypertension. 2. Diabetes mellitus. 3. Osteoarthritis. 4. Urge incontinence. 5. Depression. 6. Hyperlipidemia. PAST SURGICAL HISTORY: 1. Status post cholecystectomy. 2. Status post hernia repair. 3. Status post hysterectomy. HOME MEDICATIONS: Include: 1. Glipizide 5 mg oral daily. 2. Oxybutynin 5 mg oral daily. 3. Lisinopril/hydrochlorothiazide 20/25 one tablet oral daily. 4. Simvastatin 3 mg oral daily at bedtime. 5. Humalog KwikPen 75/25, 12 units subcutaneously twice daily. 6. Meloxicam 7.5 mg oral twice daily. 7. Multivitamin 1 tablet oral daily. ALLERGIES: LATEX. FAMILY HISTORY: The patient reports family history of diabetes mellitus, heart disease, and stroke. SOCIAL HISTORY: The patient does not smoke, drink alcohol, or use recreational drugs. She works as a home health aide. The patient's brother, Lacho Restrepo, will be her surrogate decision maker in the event she is unable to make decisions for herself. REVIEW OF SYSTEMS: I performed a 14-point review of systems. All the pertinent positives and negatives are mentioned in the history of present illness. The remaining review of systems is negative. PHYSICAL EXAM: Vital Signs: Temperature 97.3, heart rate 74, respiratory rate 11, O2 sat 98% on 3 L via nasal cannula, blood pressure 153/74. General Appearance: The patient is drowsy, but responds to voice, pleasant, appears to be in no acute distress. HEENT: Normocephalic, atraumatic. Pupils are equal and reactive to light. Extraocular movements are intact. Respiratory: There is no accessory muscle use and lungs are clear to auscultation bilaterally. Cardiac: Regular rate and rhythm. S1 and S2 present. There are no murmurs, rubs, or gallops heard. Abdomen: Soft, nontender, and nondistended. There were bowel sounds present x4. Extremities: There is no lower extremity edema. DP and PT pulses are 2+ and symmetric. Musculoskeletal: There is no clubbing or cyanosis noted. The patient exhibits good strength in all extremities. Neurological: The patient is alert and oriented x4. Cranial nerves II through XII are grossly intact. Psychological: The patient is calm and cooperative. Skin: There are no rashes or abnormalities seen. The patient has a clean, dry , and intact dressing to her right knee. LABORATORY DATA: Preoperative labs from 08/10/17, sodium 135, potassium 4.5, chloride 99, CO2 29, BUN 31, creatinine 1.06, glucose 194. White blood cell count 8.0, hemoglobin 11.7, hematocrit 34, and platelet count 224. Urinalysis negative. IMPRESSION: Ms. Restrepo is a 57-year-old female with past medical history significant for osteoarthritis, urge incontinence, hypertension, diabetes mellitus, depression, hyperlipidemia, who presents to the hospital today for an elective right total knee replacement with Dr. Sendy France. ASSESSMENT AND PLAN: 1. Status post right total knee arthroplasty. Management will be per Orthopedic Surgery. The patient will be placed on a pain medication regimen and a bowel regimen. She will have physical therapy and occupational therapy starting tomorrow. She will have urinary catheter in place until tomorrow morning. The patient will have her H and H trended. 2. Diabetes mellitus. The patient will have glucose checks a.c. and h.s. We will place her on a lispro sliding scale while in the hospital. We will hold her glipizide. 3. Hypertension. We will resume the patient's lisinopril/hydrochlorothiazide in the morning if her blood pressures allow. She has actually been slightly hypertensive while in the emergency room, I suspect this is secondary to holding her antihypertensives this morning. 4. Hyperlipidemia. The patient will be continued on her statin. 5. Urge incontinence. The patient will be continued on her home oxybutynin. 6. Obesity. BMI 31 7. Fluid, electrolytes, and nutrition. The patient will be on a consistent carbohydrate diet. 8. Code status. Full code. 9. DVT prophylaxis. The patient will be on Lovenox bridged to warfarin per Orthopedic Surgery. 10. Disposition. Inpatient with disposition per Orthopedic Surgery. TIME SPENT: Time for this consultation was approximately 45 minutes, greater than half of that was spent with the patient discussing medications, past medical history, the events leading up to her arrival today, and performing a physical examination. Reviewed by DALILA HINOJOSA 08/28/17 [id number]/[facility] #: [id number] CASA
[2017-08-22] MEDS: ceFAZolin 1 GM in Dextrose (*) 1 GM/50 ML BAG IVPB SCH ×3 (00:12→14:31)
[2017-08-22] MEDS: oxyCODONE/Acetamin 5/325 MG* TAB PO PRN ×5 (01:28→23:43)
[2017-08-22 05:45] LABS: Hematocrit 27 % (35-47); Hemoglobin 8.9 g/dl (12.0-16.0)
[2017-08-22 06:12] LABS: Calcium 8.2 mg/dL (8.6-10.3); EGFR African American 56.1 (>60); EGFR Non-African American 43.6 (>60); Potassium 4.7 mmol/L (3.5-5.0)
[2017-08-22] MEDS: Insulin LISPRO* 1 UNITS UNIT SUBCUT SCH ×5 (06:27→21:58)
[2017-08-22] MEDS: Oxybutynin TAB* 5 MG PO SCH ×2 (08:34→21:11)
[2017-08-22] MEDS: Hydrochlorothiazide TAB* 25 MG PO SCH (08:34)
[2017-08-22] MEDS: Lisinopril TAB* 10 MG PO SCH (08:34)
[2017-08-22] MEDS: Docusate CAP* 100 MG PO SCH ×2 (08:34→21:10)
--- NOTE | 2017-08-22 08:46 | PN ---
Progress Note - Progress Note Date of Service: 08/22/17 SOAP: Subjective: []Patient seen OOB in chair. She feels quite well without RLE pain. Denies CP, SOB, nausea, leg numbness. Glucose has been elevated into the 400's, hospitalist service has her on lispro sliding scale for control. Objective: [] Vital Signs Temp 97.7 F 08/22/17 07:34 Pulse 89 08/22/17 07:34 Resp 16 08/22/17 07:48 BP 129/67 08/22/17 07:34 Pulse Ox 99 08/22/17 08:00 Intake & Output 08/21/17 08/22/17 08/22/17 18:59 06:59 18:59 Intake Total 2400 325 1456 Output Total 550 325 Balance 1850 0 1456 Weight 190 lb 9.6 oz Intake: IV Fluids 2400 1096 LR 2350 980 NS 50ML, Cefazolin 2G 50 abx 116 Oral 325 360 Output: Urine 150 Cook 550 175 Other: # Bowel Movements 0 Laboratory Last Values Hgb 8.9 g/dl (12.0-16.0) L 08/22/17 05:32 Hct 27 % (35-47) L 08/22/17 05:32 INR (Anticoag Therapy) 1.03 (0.77-1.02) H 08/22/17 05:32 Sodium 131 mmol/L (133-145) L 08/22/17 05:32 Potassium 4.7 mmol/L (3.5-5.0) 08/22/17 05:32 Chloride 101 mmol/L (101-111) 08/22/17 05:32 Carbon Dioxide 22 mmol/L (22-32) 08/22/17 05:32 Anion Gap 8 mmol/L (2-11) 08/22/17 05:32 BUN 39 mg/dL (6-24) H 08/22/17 05:32 Creatinine 1.26 mg/dL (0.51-0.95) H 08/22/17 05:32 Est GFR ( Amer) 56.1 (>60) 08/22/17 05:32 Est GFR (Non-Af Amer) 43.6 (>60) 08/22/17 05:32 BUN/Creatinine Ratio 31.0 (8-20) H 08/22/17 05:32 Glucose 343 mg/dL (70-100) H 08/22/17 05:32 POC Glucose (mg/dL) 335 mg/dL (70-100) H 08/22/17 07:38 Calcium 8.2 mg/dL (8.6-10.3) L 08/22/17 05:32 General: OOB in chair. Well appearing, NAD Right Lower Extremity: Dressing CDI Bl LE: Calves supple and nontender without erythema, edema or palpable cords. Negative major's sign bilaterally. DF/PF intact. DP/PT 2+. Sensation intact distally. Assessment: []POD 1 s/p right total knee arthroplasty, Dr France 08/21/17 Plan: []WBAT PT/OT Lovenox, coumadin 6 mg today Appreciate hospitalist input, managing medical comorbidities.
[2017-08-22] MEDS ORDERED: glipiZIDE TAB* 5 MG PO SCH (09:00)
[2017-08-22] MEDS: Enoxaparin(*) 30 MG/0.3 ML SYR SUBCUT SCH (11:51)
--- NOTE | 2017-08-22 12:25 | OP ---
DATE OF OPERATION: 08/21/17 - ROOM #349 DATE OF : 58 SURGEON: Sendy France MD. SCHOOL AGE LEAD TEACHER: ESHA Castano. Mr. Melchor did help throughout the procedure with preparation of the leg, wound retraction, manipulation of the knee, and wound closure. ANESTHESIOLOGIST: Dr. Brunson. ANESTHESIA: General with adductor nerve block. PRE-OP DIAGNOSIS: Severe end-stage degenerative osteoarthritis of the right knee joint with valgus deformity. POST-OP DIAGNOSIS: Severe end-stage degenerative osteoarthritis of the right knee joint with valgus deformity. OPERATIVE PROCEDURE: Right total knee arthroplasty. TOURNIQUET TIME: 53 minutes. COMPLICATIONS: None. ESTIMATED BLOOD LOSS: 300 cc. SPECIMENS: Bone and cartilage from the right knee joint sent to Pathology. HARDWARE USED: [employer] cemented total knee hardware. Two packages of Simplex bone cement. For the femur, a size 4 narrow right posterior stabilized femoral component. For the tibia, size 4 tibial baseplate Eva II. For the insert, a 9 mm constrained articular insert size 3-4 and for the patella a 29- mm 3- peg all poly patella with 7.5 thickness. BRIEF HISTORY/INDICATIONS: Ms. Restrepo is a 57-year-old female with years of increasingly severe right knee pain and valgus deformity. Radiographs confirmed feci-ph-fwap arthritis. She failed conservative treatment with antiinflammatory pain medication, intraarticular injection and physical therapy. Due to continued pain and decreased quality of life, the patient elected to undergo right total knee arthroplasty. Informed consent was obtained from the patient. She understood the risks of surgery include but were not limited to bleeding, infection, damage to nearby structures, continued pain, need for further surgery, intraoperative fracture, nerve palsy, hardware failure or loosening, knee stiffness, loss of motion, stroke, heart attack, blood clot and . She wished to proceed. INTRAOPERATIVE FINDINGS: Intraoperatively, the patient was noted to have 22 degrees valgus deformity to begin the case. She had lateral femoral condylar hypoplasia. She had tricompartmental loss of cartilage. Throughout the case, the MCL was noted to have laxity and incompetence, which was chronic baseline. DESCRIPTION OF PROCEDURE: Ms. Restrepo was identified in the preanesthesia unit. Her right lower extremity was marked as the correct operative site. Informed consent was signed and placed in the chart. The patient was taken to the operating room and placed under general anesthesia. An adductor canal block was placed. A Cook catheter was placed. Tourniquet was placed on the right thigh. Right lower extremity was prepped and draped in the usual sterile fashion. Preop time-out was made to correctly identify the patient's side and site. Appropriate perioperative antibiotics were given within 1 hour of incision. Tourniquet was inflated until tourniquet time for this procedure was 53 minutes. A 14 cm midline incision was made with a 10 blade and carried down to the extensor mechanism. New 10 blade was used to make standard medial parapatellar arthrotomy. The patella was subluxed laterally. Electrocautery was used to subperiosteally elevate the soft tissue off the superomedial tibia to the mid sagittal plane. The knee was flexed up. There was no lateral meniscus. There was no ACL. A drill was used to enter the distal femur. Lateral femoral condylar hypoplasia was noted and accounted for. Intramedullary distal femoral cutting guide was pinned on the distal femur. Oscillating saw was used to make the distal femoral cut. External rotation guide was pinned on the distal femur. The distal femur was sized to a size 4. Size 4 multi-cutting jig was pinned on the distal femur. Oscillating saw was used to make the appropriate 4 chamfer cuts. The PCL was completely released. The tibia was subluxed anteriorly. Extramedullary tibial cutting guide was pinned on the proximal tibia. The oscillating saw was used to make the proximal tibial bone cut perpendicular to the mechanical axis of the tibia. The bone was carefully removed. The knee was brought out into full extension. The valgus deformity was greatly improved. However, it was noted through-out the case the MCL was loose and incompetent. Any osteophytes along the lateral proximal tibia and femur were carefully removed. Electrocautery was used to release the posterolateral capsule along the tibia. A 15 blade was used to perform a conservative pie crusting technique of the lateral ligament. Medial and lateral ligamentous balancing was improved. The spacer blocks fit with knee in full extension and anatomic valgus. The MCL laxity did remain and a decision was made to use a constraint liner. The knee was flexed up. Lamina steel grinder was placed both medially and laterally. Any remaining meniscus was carefully removed using electrocautery. Any posterior osteophytes were removed with a curved osteotome. Tibial tray and drop boston confirmed satisfactory tibial cut. A 4 narrow right femoral trial was impacted onto the distal femur and had excellent fit. The box for the posterior stabilized implant was prepared using a reamer and box-cut osteotome. A size 4 tibial tray and 9 mm insert trial was placed and the knee was taken through range of motion. The knee had full extension to 130 degrees of flexion with satisfactory patellofemoral tracking. The patella was everted. The patella was extremely thin. 7 mm of patellar bone and cartilage was carefully removed with an oscillating saw. The patella was sized to a size 29. Three peg holes were drilled through the size 29 guide. A 7.5 thickness trial 29 patella was chosen and placed. The knee was taken through range of motion. Patellofemoral tracking was satisfactory. All trials were carefully removed. The tibia was subluxed anteriorly and sized to a size 4. Proximal tibia was prepared using a size 4 keel punch. All bony cut surfaces were copiously irrigated with sterile saline and dried. The final implants were cemented into place starting with the tibia, followed by the femur and last the patella. The 9-mm insert trial was placed while the knee was brought out into full extension. The cement was allowed to fully cure and tourniquet was turned down at 53 minutes. The knee was copiously irrigated with sterile saline. Electrocautery was used to obtain meticulous hemostasis. Once the cement had fully cured, the insert trial was removed. Any excess cement was removed from around the capsule and hardware. Final implant chosen was a 9 mm constrained articular insert, size 3-4. This was locked into place on the trial tray without difficulty. Stability of the insert was checked and rechecked and noted to be stable. The extensor mechanism was closed using interrupted #1 Vicryl over a medium Hemovac drain. The rest of the incision was closed in a layered fashion using 0 and 2-0 Vicryl. Skin was closed using running 3-0 nylon suture. Sterile Xeroform, 4x4s, and Webril were used to cover the incision. Mumtaz wrap and cold pack were placed over this. The patient's anesthesia was reversed without difficulty. She was taken to the PACU in stable condition. Intended weightbearing will be weightbearing as tolerated. Intended DVT prophylaxis will be Coumkatja with a Novitas bridge. [id number]/[facility] #: [id number] CASA
[2017-08-22] MEDS ORDERED: Warfarin TAB(*) 6 MG PO SCH (17:00)
[2017-08-22] MEDS: Atorvastatin* 20 MG TAB PO SCH (17:08)
[2017-08-22] MEDS ORDERED: HYDROmorphone INJ* 1 MG/ML CARPUJECT SYRINGE ONE (21:07)
[2017-08-22] MEDS ORDERED: HYDROmorphone INJ* 1 MG/ML CARPUJECT SYRINGE IV PRN (21:10)
[2017-08-22] MEDS: oxyCODONE TAB* 5 MG TAB PO PRN (21:10)
[2017-08-22] MEDS: Magnesium Hydroxide LIQ* 30 ML UDC PO PRN (21:26)
[2017-08-23] MEDS: oxyCODONE TAB* 5 MG TAB PO PRN ×2 (03:20→09:19)
[2017-08-23 06:15] LABS: Hematocrit 22 % (35-47); Hemoglobin 7.6 g/dl (12.0-16.0); Mean Platelet Volume 7 um3 (7.4-10.4)
[2017-08-23] MEDS: oxyCODONE/Acetamin 5/325 MG* TAB PO PRN ×3 (06:19→21:31)
[2017-08-23] MEDS: Insulin LISPRO* 1 UNITS UNIT SUBCUT SCH ×4 (08:10→21:23)
[2017-08-23] MEDS: Docusate CAP* 100 MG PO SCH ×2 (08:11→21:21)
[2017-08-23] MEDS: Oxybutynin TAB* 5 MG PO SCH ×2 (08:11→21:21)
[2017-08-23] MEDS: Hydrochlorothiazide TAB* 25 MG PO SCH (08:11)
[2017-08-23] MEDS: Lisinopril TAB* 10 MG PO SCH (08:12)
--- NOTE | 2017-08-23 12:29 | PN ---
Progress Note - Progress Note Date of Service: 08/23/17 SOAP: Subjective: []Patient seen at bedside. She feels well. She denies pain of operative site, chest pain, shortness of breath, dizziness, nausea. She desires to go home Objective: [] Vital Signs Temp 99.5 F 08/23/17 16:54 Pulse 90 08/23/17 16:54 Resp 18 08/23/17 17:24 BP 124/55 08/23/17 16:54 Pulse Ox 93 08/23/17 16:54 Intake & Output 08/22/17 08/23/17 08/23/17 18:59 06:59 18:59 Intake Total 2520 575 1354 Output Total 400 950 700 Balance 2120 -375 654 Intake: IV Fluids 1640 70 LR 1469 abx 171 ns 70 Oral 178 126 5008 Packed Cells 284 Output: Urine 400 950 700 Other: Estimated Void Large Large # Voids 1 2 Laboratory Last Values Hgb 7.6 g/dl (12.0-16.0) L 08/23/17 06:00 Hct 22 % (35-47) L 08/23/17 06:00 Plt Count 165 10^3/ul (150-450) 08/23/17 06:00 MPV 7 um3 (7.4-10.4) L 08/23/17 06:00 INR (Anticoag Therapy) 1.56 (0.77-1.02) H 08/23/17 06:00 Sodium 131 mmol/L (133-145) L 08/22/17 05:32 Potassium 4.7 mmol/L (3.5-5.0) 08/22/17 05:32 Chloride 101 mmol/L (101-111) 08/22/17 05:32 Carbon Dioxide 22 mmol/L (22-32) 08/22/17 05:32 Anion Gap 8 mmol/L (2-11) 08/22/17 05:32 BUN 39 mg/dL (6-24) H 08/22/17 05:32 Creatinine 1.26 mg/dL (0.51-0.95) H 08/22/17 05:32 Est GFR ( Amer) 56.1 (>60) 08/22/17 05:32 Est GFR (Non-Af Amer) 43.6 (>60) 08/22/17 05:32 BUN/Creatinine Ratio 31.0 (8-20) H 08/22/17 05:32 Glucose 343 mg/dL (70-100) H 08/22/17 05:32 POC Glucose (mg/dL) 329 mg/dL (70-100) H 08/23/17 17:19 Calcium 8.2 mg/dL (8.6-10.3) L 08/22/17 05:32 Blood Type O Negative 08/23/17 06:00 Antibody Screen Negative 08/23/17 06:00 Crossmatch See Detail 08/23/17 06:00 General: OOB in chair. Well appearing, NAD Right Lower Extremity: Dressing CDI. Dr. France changed dressing without complication this morning. Bl LE: Calves supple and nontender without erythema, edema or palpable cords. Negative major's sign bilaterally. DF/PF intact. DP/PT 2+. Sensation intact distally. Assessment: []POD 2 s/p right total knee arthroplasty, Dr France 08/21/17 Acute bloodloss anemia Plan: []WBAT PT/OT 1 unit PRBC given, recheck H&H tomorrow Appreciate hospitalist input, managing medical comorbidities. Hospitalist will see tonight for diabetic control and D/C tomorrow Patient staying tonight due to poorly controlled blood sugar, acute bloodloss anemia
[2017-08-23] MEDS: Enoxaparin(*) 30 MG/0.3 ML SYR SUBCUT SCH (12:38)
[2017-08-23] MEDS ORDERED: Warfarin TAB(*) 4 MG PO ONE (17:00)
[2017-08-23] MEDS: Atorvastatin* 20 MG TAB PO SCH (17:25)
[2017-08-23] MEDS: Magnesium Hydroxide LIQ* 30 ML UDC PO PRN (17:28)
--- NOTE | 2017-08-23 18:46 | PN ---
Subjective Date of Service: 08/23/17 Interval History: Ms. Restrepo reports feeling well this afternoon. She denies any complaint and says her knee pain is reasonably controlled on the current regimen. She denies chest pain, SOB, nausea, or abdominal pain. Objective Active Medications: Acetaminophen (Tylenol Tab*) 650 mg PO Q4H PRN Atorvastatin Calcium (Lipitor*) 20 mg PO QPM CHRISTOPHER Bisacodyl (Dulcolax Supp*) 10 mg AL DAILY PRN Cyclobenzaprine HCl (Flexeril Tab*) 10 mg PO TID PRN Dextrose (D50w Syringe 50 Ml*) 12.5 gm IV PUSH .FOR FS < 60 - SS PRN Diphenhydramine HCl (Benadryl Iv*) 12.5 mg IV Q6H PRN Docusate Sodium (Colace Cap*) 100 mg PO BID CHRISTOPHER Enoxaparin Sodium (Lovenox(*)) 30 mg SUBCUT Q24H CHRISTOPHER Hydrochlorothiazide (Hydrodiuril Tab*) 25 mg PO QAM CHRISTOPHER Hydromorphone HCl (Dilaudid Inj*) 2 mg IV SLOW PU Q4H PRN Hydromorphone HCl (Dilaudid Injic*) 1 mg IV Q3H PRN Lactated Ringer's (Lactated Ringers 1000 Ml Bag*) 1,000 mls @ 100 mls/hr IV PER RATE CHRISTOPHER Insulin Human Lispro (Humalog*) 0 - 10 units SUBCUT ACHS CHRISTOPHER Lactulose (Lactulose*) 30 ml PO Q6H PRN Lisinopril (Prinivil Tab*) 20 mg PO QAM CHRISTOPHER Magnesium Hydroxide (Milk Of Magnesia Liq*) 30 ml PO Q6H PRN Ondansetron HCl (Zofran Inj*) 4 mg IV Q6H PRN Ondansetron HCl (Zofran Tab*) 4 mg PO Q6H PRN Oxybutynin Chloride (Ditropan Tab*) 5 mg PO BID CHRISTOPHER Oxycodone HCl (Roxycodone Tab*) 10 mg PO Q4H PRN Oxycodone/Acetaminophen (Percocet 5/325 Tab*) 2 tab PO Q4H PRN Polyethylene Glycol/Electrolytes (Miralax*) 17 gm PO DAILY PRN Vital Signs: Temp Pulse Resp BP Pulse Ox 99.5 F 90 18 124/55 93 08/23/17 16:54 08/23/17 16:54 08/23/17 17:24 08/23/17 16:54 08/23/17 16:54 Oxygen Devices in Use Now: None Appearance: Female sitting up in bed in NAD Eyes: No Scleral Icterus Ears/Nose/Mouth/Throat: Mucous Membranes Moist Neck: Trachea Midline Respiratory: Symmetrical Chest Expansion and Respiratory Effort, Clear to Auscultation Cardiovascular: NL Sounds; No Murmurs; No JVD, No Edema Abdominal: NL Sounds; No Tenderness; No Distention Lymphatic: No Cervical Adenopathy Extremities: No Edema Skin: No Rash or Ulcers Neurological: Alert and Oriented x 3, NL Muscle Strength and Tone Nutrition: Taking PO's Result Diagrams: 08/23/17 06:00 08/22/17 05:32 Assess/Plan/Problems-Billing Assessment: Ms. Restrepo is a 57 yo female with a PMH of hypertension, diabetes, hyperlipidemia who was admitted 08/22/17 for an elective right total knee arthroplasty. - Patient Problems (1) S/P total knee arthroplasty Comment: - Management per ortho. - Pain meds prn. - PT/OT. - Hgb fell to 7.6 today, 1 unit PRBC ordered per ortho. (2) Diabetes Comment: - BGs 300s. - Uses humalog 75/25 at home, start lantus 10 units bedtime now, adjust based on clinical course. Increase to high dose sliding scale with meals. - Hold glipizide. (3) Hypertension Comment: - SBP 120s. - Continue lisinopril/hctz. (4) Hyperlipidemia Comment: - Continue atorvastatin. (5) Full code status (6) DVT prophylaxis Comment: - Continue lovenox with warfarin. Status and Disposition: Inpatient. Disposition per ortho.
[2017-08-23] MEDS ORDERED: Insulin GLARGINE(*) 1 UNITS UNIT SUBCUT SCH (21:00)
[2017-08-24] MEDS: oxyCODONE/Acetamin 5/325 MG* TAB PO PRN ×3 (01:56→10:48)
[2017-08-24 05:55] LABS: Hematocrit 27 % (35-47); Hemoglobin 9.3 g/dl (12.0-16.0)
[2017-08-24 06:09] LABS: BUN/Creatinine Ratio 22.4 (8-20); Calcium 8.9 mg/dL (8.6-10.3); EGFR African American 67.7 (>60); EGFR Non-African American 52.7 (>60); Potassium 4.4 mmol/L (3.5-5.0)
[2017-08-24] MEDS: Oxybutynin TAB* 5 MG PO SCH (09:02)
[2017-08-24] MEDS: Docusate CAP* 100 MG PO SCH (09:02)
[2017-08-24] MEDS: Magnesium Hydroxide LIQ* 30 ML UDC PO PRN (09:03)
[2017-08-24] MEDS: Hydrochlorothiazide TAB* 25 MG PO SCH (09:03)
[2017-08-24] MEDS: Lisinopril TAB* 10 MG PO SCH (09:03)
[2017-08-24] MEDS: Insulin LISPRO* 1 UNITS UNIT SUBCUT SCH (09:03)
[2017-08-24 09:42] VITALS: BP 117/52
--- NOTE | 2017-08-24 09:54 | PN ---
Progress Note - Progress Note Date of Service: 08/24/17 SOAP: Subjective: 57 y/o female s/p R TKA by DR. France 08/21/17. Patient feeling well, no lightheaded, dizziness. No complaints, questions. VSS afebrile overnight, BG remains elevated however improved. Objective: General- Well appearing, nAD, AO MSK- dressing taken down, incision c/d/i, no drainage noted, mild swelling, no ecchymosis. SITLT R LE, PT 2+ b/l, mild edema b/l ankles, + DF/PF. redressed. neg homans b/l Vital Signs Temp 97.8 F 08/24/17 07:23 Pulse 76 08/24/17 07:23 Resp 16 08/24/17 09:08 BP 117/52 08/24/17 07:23 Pulse Ox 95 08/24/17 08:00 Intake & Output 08/23/17 08/24/17 08/24/17 18:59 06:59 18:59 Intake Total 1354 1070 470 Output Total 700 1150 Balance 654 -80 470 Intake: IV Fluids 70 ns 70 Oral 1000 1070 470 Packed Cells 284 Output: Urine 700 1150 Other: Estimated Void Large # Voids 2 Assessment: 57 y/o female s/p R TKA by DR. France 08/21/17. Plan: - DVT prophylaxis- lovenox currently, harrison- INR 1.69 - Continue PT/ OT - Will discuss with hospitalists management for glucose at home - Follow up with Dr. France within 10 days Active Medications Generic Name Dose Route Start Last Admin Trade Name Freq PRN Reason Stop Dose Admin Acetaminophen 650 mg 08/21/17 15:21 Tylenol Tab* PO Q4H PRN PAIN OR TEMPERATURE Atorvastatin Calcium 20 mg 08/21/17 21:00 08/23/17 17:25 Lipitor* PO 20 mg QPM CHRISTOPHER Administration Bisacodyl 10 mg 08/21/17 15:21 Dulcolax Supp* MT DAILY PRN constipation Cyclobenzaprine HCl 10 mg 08/21/17 15:32 Flexeril Tab* PO TID PRN SPASMS Dextrose 12.5 gm 08/21/17 21:42 D50w Syringe 50 Ml* IV PUSH .FOR FS < 60 - SS PRN FS < 60 Diphenhydramine HCl 12.5 mg 08/21/17 15:21 Benadryl Iv* IV Q6H PRN PRURITIS Docusate Sodium 100 mg 08/21/17 21:00 08/24/17 09:02 Colace Cap* PO 100 mg BID CHRISTOPHER Administration Enoxaparin Sodium 30 mg 08/22/17 12:00 08/23/17 12:38 Lovenox(*) SUBCUT 30 mg Q24H CHRISTOPHER Administration Hydrochlorothiazide 25 mg 08/22/17 09:00 08/24/17 09:03 Hydrodiuril Tab* PO 25 mg QAM CHRISTOPHER Administration Hydromorphone HCl 2 mg 08/21/17 15:31 Dilaudid Inj* IV SLOW PU Q4H PRN PAIN Hydromorphone HCl 1 mg 08/22/17 21:10 Dilaudid Injic* IV Q3H PRN PAIN - SEVERE Lactated Ringer's 1,000 mls @ 100 mls/hr 08/21/17 16:00 08/22/17 07:43 Lactated Ringers 1000 Ml Bag* IV 100 mls/hr PER RATE CHRISTOPHER Administration Insulin Glargine 10 units 08/23/17 21:00 08/23/17 21:24 Lantus(*) SUBCUT 10 units 2100 CHRISTOPHER Administration Insulin Human Lispro 0 - 10 units 08/23/17 18:47 08/24/17 09:03 Humalog* SUBCUT 9 units ACHS CHRISTOPHER Administration Protocol Lactulose 30 ml 08/21/17 15:21 Lactulose* PO Q6H PRN constipation Lisinopril 20 mg 08/22/17 09:00 08/24/17 09:03 Prinivil Tab* PO 20 mg QAM CHRISTOPHER Administration Magnesium Hydroxide 30 ml 08/21/17 15:21 08/24/17 09:03 Milk Of Magnesia Liq* PO 30 ml Q6H PRN Administration constipation Ondansetron HCl 4 mg 08/21/17 15:21 Zofran Inj* IV Q6H PRN nausea Ondansetron HCl 4 mg 08/21/17 15:21 Zofran Tab* PO Q6H PRN NAUSEA Oxybutynin Chloride 5 mg 08/21/17 21:00 08/24/17 09:02 Ditropan Tab* PO 5 mg BID CHRISTOPHER Administration Oxycodone HCl 10 mg 08/21/17 15:21 08/23/17 09:19 Roxycodone Tab* PO 10 mg Q4H PRN Administration SEVERE PAIN Oxycodone/Acetaminophen 2 tab 08/21/17 15:21 08/24/17 06:17 Percocet 5/325 Tab* PO 2 tab Q4H PRN Administration PAIN Polyethylene Glycol/Electrolytes 17 gm 08/21/17 15:21 08/24/17 09:03 Miralax* PO 17 gm DAILY PRN Administration Constipation
--- NOTE | 2017-08-25 04:35 | DS ---
DISCHARGE SUMMARY: DATE OF ADMISSION: 08/21/17 DATE OF DISCHARGE: 08/24/17 ATTENDING PHYSICIAN: Dr. France * (DICTATED BY ESHA FABIAN) CHIEF COMPLAINT: 1. Right knee pain. 2. Hypertension. 3. Diabetes. DISCHARGE DIAGNOSES: 1. Right total knee arthroplasty. 2. Hypertension. 3. Diabetes. PROCEDURES: Right total knee arthroplasty. CONSULTATIONS: 1. Physical Medicine. 2. Occupational Therapy. 3. Hospitalist Medicine. BRIEF HISTORY: Ms. Restrepo is a very pleasant 57-year-old female with a long- standing history of severe end-stage osteoarthritis of the right knee, who failed conservative treatment and elected to undergo a right total knee arthroplasty by Dr. France on 08/21/17. HOSPITAL COURSE: Ms. Restrepo was admitted to [facility] on 08/21/17, where she underwent an uncomplicated right total knee arthroplasty. Postoperatively, she recovered on the surgical short stay unit. On post- operative day 1, her Cook was removed and she was voiding on her own without difficulty. She was advanced to a carbohydrate controlled diet and her pain was controlled with p.o. Percocet. She was restarted on her home medications, but changed to a sliding scale for insulin for a tighter glucose control. Her labs and vital signs remained stable. She was able to weight bear as tolerated on the right lower extremity. She advanced approximately with physical therapy and occupational therapy. Her DVT prophylaxis was managed with Lovenox and Coumadin until she reached a therapeutic INR. By postoperative day 3, she was orthopedically and medically stable for discharge to go home with home services. PHYSICAL EXAMINATION: General: Alert and oriented, in no acute distress. Sitting in chair comfortable. Fully dressed. Vital Signs: Temperature 97.8, pulse 76, respirations 16, blood pressure 117/52, pulse oxygenation 95% on room air. The dressing from the right knee was taken down, the incision was clean, dry, and intact. No drainage noted. Mild swelling globally and no ecchymosis noted. New dressing was placed and the patient was intact to light touch in right lower extremity. Posterior tibial pulses 2+ bilaterally. Mild edema in bilateral ankles. Positive dorsiflexion and plantar flexion equal bilaterally. Negative Homans sign bilaterally. DIAGNOSTIC STUDIES/LAB DATA: On the date of discharge include an H and H of 9.3 and 27 with an INR of 1.69. Radiographs: Postoperative films obtained of the right knee postoperatively show a right knee replacement in normal alignment. DISCHARGE MEDICATIONS: 1. Centrum Silver vitamins 1 tablet daily p.o. 2. Colace 100 mg p.o. b.i.d. 3. Glucotrol 5 mg p.o. q.a.m. 4. Humalog 75/25, 12 units subcu b.i.d. 5. Zertoretic 20/25 one tablet p.o. q.a.m. 6. Ditropan 5 mg p.o. b.i.d. 7. Percocet 5/325 one to two tablets every 4 to 6 hours as needed for pain. 8. Simvastatin 40 mg p.o. q.p.m. 9. Coumadin 2 mg tablets daily at 5 p.m. per physician's instructions. CONDITION ON DISCHARGE: Stable. DISCHARGE INSTRUCTIONS: Ms. Restrepo is a very pleasant 57-year-old female, status post right total knee arthroplasty postoperative day 3, which is uncomplicated. She is orthopedically and medically stable for discharge to go home with home services. Her labs and vital signs are stable. She will restart her home medications. She will take 6 mg of Coumadin tonight, 4 mg on 08/25/17, and 2 mg on 08/26/17. She will have INR draws on Sunday and . She will remain weightbearing as tolerated in the right lower extremity. She will have home physical therapy twice a week. She will take Percocet as needed for pain control and Colace 3 times a day as needed for constipation. She will follow up with Dr. France in approximately 10 to 14 days for incision check and suture removal. She will start rechecking her blood sugars more frequently up to twice a day and recording the value the moment she is over 200. She is instructed to go immediately to the ER if she develops pain or shortness of breath. Should she develop fever, increasing redness, or concerns about the incision site, she needs to call the office immediately. ESHA FABIAN [id number]/[facility] #: [id number] CASA
== END 2017-08-24 11:33 | DRG 302 ==
LOC: AA 11:44 → SSU 19:57
PROVIDERS: ADMIT Orthopaedic Surgery Adult Reconstructive Orthopaedic Surgery; ATTEND Orthopaedic Surgery Adult Reconstructive Orthopaedic Surgery
PROC: 0SRC0J9 Replacement of Right Knee Joint with Synthetic Substitute, Cemented, Open Approach (ICD-10-PCS; principal; 2017-08-21 14:00)
PROC: 30233N1 Transfusion of Nonautologous Red Blood Cells into Peripheral Vein, Percutaneous Approach (ICD-10-PCS; 2017-08-23)
DX: M17.11 Unilateral primary osteoarthritis, right knee (principal); D62 Acute posthemorrhagic anemia; I10 Essential (primary) hypertension; M21.061 Valgus deformity, not elsewhere classified, right knee; E78.5 Hyperlipidemia, unspecified; F32.9 Major depressive disorder, single episode, unspecified; N39.41 Urge incontinence; M25.761 Osteophyte, right knee; E11.65 Type 2 diabetes mellitus with hyperglycemia; Z90.710 Acquired absence of both cervix and uterus; Z90.49 Acquired absence of other specified parts of digestive tract; Z91.040 Latex allergy status; Z82.49 Family history of ischemic heart disease and other diseases of the circulatory system; Z83.3 Family history of diabetes mellitus; Z82.3 Family history of stroke; Z79.4 Long term (current) use of insulin
CPT/HCPCS: 36415; 80048; 82947; 85014; 85018; 85049; 85610; 86850; 86900; 86901; 86922; 88305; 88311; A9270-GY; C1776; J0690; J1100; J1170; J1650; J1885; J2250; J2270; J2405; J2704; J3010; P9040

== ENCOUNTER 2020-11-19 07:21 | Observation (INO) ==
[~2020-11-19 07:21] MED LIST changes: -Buffered Lidocaine 0.9% SYRIN* 5 ML/SYR SYRINGE INTRADERM ONE; +Buffered Lidocaine 1% SYRIN 1 ml INTRADERM ONE; +Famotidine IV 10 MG/ML 2 ml VIAL (20 mg) IV ONE; -Famotidine IV* 10 MG/ML 2 ML (20 mg) IV ONE; +Lactated Ringers 1000 ml BAG 1,000 ML IV SCH; -Metoclopramide TAB* 10 MG PO ONE
[2020-11-19] MEDS ORDERED: ceFAZolin 2 GM PREMIX 2 GM/50 ML BAG ONE (08:00)
[2020-11-19] MEDS ORDERED: Famotidine IV 10 MG/ML 2 ml VIAL (20 mg) ONE (08:00)
[2020-11-19] MEDS ORDERED: Midazolam 2 mg/2 ml VIAL 1 mg/ml 2 ml VIAL (2 mg) ONE ×4 (08:09→12:25)
[2020-11-19] MEDS ORDERED: Propofol 10 MG/ML 20 ML BTL ONE ×2 (08:09→09:03)
[2020-11-19] MEDS ORDERED: Lidocaine 2% PF 5 ML VIAL ONE (08:09)
[2020-11-19] MEDS ORDERED: Lidocaine 1% MPF 5 ML VIAL ONE (08:47)
[2020-11-19] MEDS ORDERED: Ropivacaine 5 MG/ML 20 ML VIAL 0.5% (100 MG) ONE ×2 (08:50→09:07)
[2020-11-19] MEDS ORDERED: Ondansetron 4 mg VIAL 2 MG/ML 2 ml VIAL ONE (09:51)
[2020-11-19] MEDS ORDERED: Glycopyrrolate IV 0.2 MG/ML 1 ML VIAL ONE (10:14)
[2020-11-19] MEDS ORDERED: Ketamine HCL 50 mg/ml 10 ml VIAL (500 MG) ONE (10:15)
[2020-11-19] MEDS ORDERED: Magnesium Hydroxide LIQ 30 ML UDC PO PRN (10:41)
[2020-11-19] MEDS ORDERED: Ondansetron 4 mg VIAL 2 MG/ML 2 ml VIAL IV PRN (10:41)
[2020-11-19] MEDS ORDERED: Ondansetron ODT 4 mg TAB 4 MG TAB PO PRN (10:41)
[2020-11-19] MEDS ORDERED: Lactulose 30 ml UDC PO PRN (10:41)
[2020-11-19] MEDS ORDERED: diPHENhydraMINE IV 50 MG/ML 1 ml VIAL (BENADRYL) IV PRN (10:41)
[2020-11-19] MEDS ORDERED: diPHENhydraMINE 25 mg TAB PO PRN (10:41)
[2020-11-19] MEDS ORDERED: HYDROmorphone 1 MG/1 ML SYRINGE IV SLOW PU PRN (10:49)
[2020-11-19] MEDS ORDERED: Lactated Ringers 1000 ml BAG 1,000 ML IV SCH (11:00)
[2020-11-19] MEDS ORDERED: DiMENhydriNATE IV 50 mg/ml 1 ml VIAL IV PUSH PRN (11:44)
[2020-11-19] MEDS ORDERED: Naloxone 0.4 mg VIAL 0.4 mg/ml 1 ml VIAL IV PRN (11:44)
[2020-11-19] MEDS ORDERED: HYDROmorphone 1 MG/1 ML SYRINGE ONE (12:08)
[2020-11-19] MEDS: HYDROmorphone 1 MG/1 ML SYRINGE IV PRN ×5 (12:11→12:31)
[2020-11-19] MEDS ORDERED: Acetaminophen IV 1 GM/100ML 100 ML ONE (12:14)
[2020-11-19] MEDS ORDERED: Acetaminophen IV 1 GM/100ML 1,000 MG/100 ML VIAL IVPB ONE (12:17)
[2020-11-19] MEDS ORDERED: Midazolam 2 mg/2 ml VIAL 1 mg/ml 2 ml VIAL (2 mg) IV SLOW PU ONE (12:18)
[2020-11-19] MEDS ORDERED: Dextrose 50% Syringe 50 ml 25 GM/50 ML SYRINGE IV PUSH PRN (15:07)
[2020-11-19] MEDS: oxyCODONE/Acetamin 5/325 mg TAB PO PRN (17:43)
[2020-11-19] MEDS: ceFAZolin 1 GM ADVAN 1 GM in NS 0.9% 50 ML 50 ML IVPB SCH (17:44)
[2020-11-19] MEDS: Magnesium Hydroxide LIQ 30 ML UDC PO SCH (19:32)
[2020-11-20] MEDS: oxyCODONE/Acetamin 5/325 mg TAB PO PRN ×3 (01:39→09:56)
[2020-11-20] MEDS: ceFAZolin 1 GM ADVAN 1 GM in NS 0.9% 50 ML 50 ML IVPB SCH ×2 (01:39→09:57)
[2020-11-20 06:11] LABS: Hematocrit 27 % (35-47); Hemoglobin 9.3 g/dL (12.0-16.0); Mean Platelet Volume 7.6 fL (7.4-10.4); Platelet Count 162 10^3/uL (150-450)
[2020-11-20 06:27] LABS: BUN/Creatinine Ratio 29.3 (8-20); Calcium 8.6 mg/dL (8.6-10.3); EGFR African American 57.5 (>60); EGFR Non-African American 47.5 (>60); Potassium 4.4 mmol/L (3.5-5.0)
[2020-11-20 07:53] VITALS: BP 135/55
[2020-11-20] MEDS ORDERED: Vitamin THERAPEUTIC TAB PO SCH (09:00)
[2020-11-20] MEDS ORDERED: TERBINAFINE HCL 250 MG PO SCH (09:00)
[2020-11-20] MEDS ORDERED: CMCS: Rosuvastatin 20 mg TAB (NF) PO SCH (09:00)
[2020-11-20] MEDS: Magnesium Hydroxide LIQ 30 ML UDC PO SCH (09:55)
[2020-11-20] MEDS ORDERED: SEMAGLUTIDE 0.5 MG SUBCUT SCH (11:00)
== END 2020-11-20 11:25 | disposition home or self-care (01) ==
LOC: SSU 07:21 → OR 07:21 → EDSTATUS 09:30
PROVIDERS: ADMIT Internal Medicine; ATTEND Orthopaedic Surgery Adult Reconstructive Orthopaedic Surgery